=== PATIENT | female | born 1945 | race Caucasian/White ===

== ENCOUNTER 2021-05-09 16:12 | Inpatient (IN) | payer MEDICARE ==
[~2021-05-09] VITALS: Ht 165.1 cm; Wt 113.4 kg
[~2021-05-09 16:12] MED LIST: AMITRIPTYLINE H25 MG PO; ASPIRIN CHEWABL81 MG PO; HYDROCHLOROTHIA25 MG PO; INDERAL TAB 1010 MG PO; LEVEMIR100 UNIT/1 SC; LEXAPRO20 MG PO; METHIMAZOLE5 MG PO; MOBIC15 MG PO; NOVOLIN R100 UNIT/1 SQ; PLAVIX 75 MG TA75 MG PO; PRINIVIL10 MG PO; PROTONIX40 MG PO
[2021-05-09 17:27] LABS: HEMOGLOBIN 14.1 gm/dl (12.3-15.3); RED BLOOD COUNT 4.57 M/UL (4.00-5.10); WHITE BLOOD COUNT 5.8 K/UL (4.5-11.0)
[2021-05-09 17:50] LABS: BUN/CREATININE RATIO 24 (0-10)
[2021-05-10 04:16] LABS: HEMOGLOBIN 13.2 gm/dl (12.3-15.3); RED BLOOD COUNT 4.32 M/UL (4.00-5.10)
[2021-05-10 04:17] LABS: WHITE BLOOD COUNT 3.9 K/UL (4.5-11.0)
[2021-05-10] MEDS ORDERED: NORVASC5 MG PO (10:18)
[2021-05-10] MEDS ORDERED: LIPITOR40 MG PO (10:19)
[2021-05-10] MEDS ORDERED: FLONASE 0.05% N16 GM (12:35)
[2021-05-10] MEDS ORDERED: ALPRAZOLAM0.5 MG PO (12:37)
[2021-05-10] MEDS ORDERED: AMITRIPTYLINE H25 MG PO (12:52)
[2021-05-10] MEDS ORDERED: DICLOFENAC SODI75 MG PO (12:52)
[2021-05-10] MEDS ORDERED: NEURONTIN 100100 MG PO (12:53)
[2021-05-10] MEDS ORDERED: LISINOPRIL10 MG PO (12:54)
[2021-05-10] MEDS ORDERED: HYDROCHLOROTHIA25 MG PO (12:55)
[2021-05-10] MEDS ORDERED: DICYCLOMINE HCL20 MG PO (12:57)
[2021-05-10] MEDS ORDERED: LANTUS INS100 UTS/M1 SC (15:11)
[2021-05-10] MEDS ORDERED: DECADRON6 MG PO (15:11)
== END 2021-05-10 17:10 | disposition home or self-care (01) | DRG 177 ==
LOC: ER1 16:12 → CDU 18:41
PROVIDERS: Emergency Medicine; Physician Assistant; ADMIT Internal Medicine
PROC: 8E0ZXY6 Isolation (ICD-10-PCS; principal; 2021-05-09)
PROC: 3E0333Z Introduction of Anti-inflammatory into Peripheral Vein, Percutaneous Approach (ICD-10-PCS; 2021-05-09)
DX: U07.1 COVID-19 (principal); J96.01 Acute respiratory failure with hypoxia; I69.351 Hemiplegia and hemiparesis following cerebral infarction affecting right dominant side; E11.65 Type 2 diabetes mellitus with hyperglycemia; I10 Essential (primary) hypertension; E78.5 Hyperlipidemia, unspecified; M19.90 Unspecified osteoarthritis, unspecified site; F17.210 Nicotine dependence, cigarettes, uncomplicated; G89.29 Other chronic pain; Z79.4 Long term (current) use of insulin; Z79.82 Long term (current) use of aspirin; Z99.81 Dependence on supplemental oxygen
CPT/HCPCS: 36600; 71045; 80048; 80053; 82550; 82553; 82803; 82962; 83735; 83874; 83880; 84484; 85025; 85027; 87040; 93005; 94640; 94664; 94760; 96374; 96375; 99285; G0378; J0696; J1100; J1650; U0002